=== PATIENT | female | born 1995 | race Hispanic/Latino ===

== ENCOUNTER 2018-03-04 20:17 | Emergency (ER) | payer SELFPAY ==
[2018-03-04] MEDS ORDERED: IBUPROFEN 400 MG TAB ONE (20:52)
[2018-03-04] MEDS ORDERED: IBUPROFEN 200 MG TAB PO ONE (20:52)
[2018-03-04] MEDS ORDERED: ACETAMINOPHEN 500 MG TAB ONE (20:52)
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
--- NOTE | 2018-03-04 21:27 | RAD REPORT ---
EXAM DESCRIPTION: RAD - Hand Right 3 View - 03/04/2018 9:17 pm CLINICAL HISTORY: injury COMPARISON: No comparisons FINDINGS: No fracture or dislocation of the right hand is evident.
--- NOTE | 2018-03-04 21:30 | RAD REPORT ---
EXAM DESCRIPTION: RAD - Hand Left 3 View - 03/04/2018 9:17 pm CLINICAL HISTORY: injury Pain COMPARISON: No comparisons FINDINGS: No fracture or dislocation is seen involving the left hand. Soft tissue swelling is seen t he dorsal aspect of the metacarpals distally.
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
== END 2018-03-04 22:58 | disposition home or self-care (01) ==
LOC: ER 20:17
DX: S00.83XA Contusion of other part of head, initial encounter (principal); S00.03XA Contusion of scalp, initial encounter; S60.222A Contusion of left hand, initial encounter; S60.221A Contusion of right hand, initial encounter; S80.02XA Contusion of left knee, initial encounter; S80.01XA Contusion of right knee, initial encounter; T14.8XXA Other injury of unspecified body region, initial encounter; Y04.2XXA Assault by strike against or bumped into by another person, initial encounter; Y93.89 Activity, other specified; Y92.89 Other specified places as the place of occurrence of the external cause
CPT/HCPCS: 70450; 71046; 72125; 99284